=== PATIENT | female | born 1995 | race Caucasian/White ===

== ENCOUNTER 2017-06-01 13:41 | Emergency (ER) | payer BC ==
[~2017-06-01] VITALS: Ht 182.9 cm; Wt 104.5 kg
[~2017-06-01 13:41] MED LIST: NO HOME MEDICATIONS; NOVOLOG 100U100 U/M1 SC; TYLENOL 325MG325 MG PO
[2017-06-01 14:04] VITALS: TEMP 98
[2017-06-01 14:09] LABS: BASO # 0.1 (0.0-0.2); BASO % 0.7 % (0.0-2.0); EOS # 0.1 (0.0-0.7); EOS % 1.7 % (0-4.0); GRAN # 4.4 (1.4-6.5); GRAN % 60.6 % (42.2-75.2); HEMATOCRIT 39.6 % (35.0-45.0); HEMOGLOBIN 13.4 g/dl (12.0-15.0); LYMPH # 2.2 (1.2-3.4); LYMPH % 29.9 % (20.0-51.0); MEAN CELL VOLUME 88 fl (80.0-95.0); MEAN CORPUSCULAR HEMOGLOBIN 30 pg (26.0-32.0); MEAN CORPUSCULAR HGB CONC 34 g/dl (33.0-37.0); MEAN PLATELET VOLUME 10.4 fl (7.4-10.4); MONO # 0.5 (0.1-0.6); MONO % 6.8 % (1.7-9.3); PLATELET COUNT 284 K/mm3 (130-400); RED BLOOD COUNT 4.52 M/mm3 (4.10-5.30); REDCELL DISTRIBUTION WIDTH-CV 12.2 % (11.5-14.5)
[2017-06-01 14:18] LABS: ALANINE AMINOTRANSFERASE 23 U/L (9-52); ALBUMIN 4.9 gm/dL (3.5-5.0); ALKALINE PHOSPHATASE 51 U/L (50-136); ANION GAP 15 mmol/L (7-16); AST,SGOT 25 U/L (15-37); BILIRUBIN,TOTAL 0.4 mg/dL (0.0-1.0); BLOOD UREA NITROGEN 9 mg/dL (7-17); CALCIUM 9.5 mg/dL (8.4-10.2); CARBON DIOXIDE 20 mmol/L (22-30); CHLORIDE 105 mmol/L (98-107); CREATININE, serum 0.65 mg/dL (0.52-1.25); GLUCOSE 59 mg/dL (74-106); POTASSIUM 3.6 mmol/L (3.4-5.0); SODIUM 139 mmol/L (137-145); TOTAL PROTEIN 7.6 gm/dL (6.4-8.2)
[2017-06-01 14:21] LABS: C-REACTIVE PROTEIN < 0.5 mg/dL (0.0-0.9)
[2017-06-01 14:32] LABS: PROLACTIN 111.4 ng/mL (3.0-18.6)
[2017-06-01 16:12] VITALS: BP 115/80; PULSE 83
== END 2017-06-01 16:06 | disposition home or self-care (01) ==
LOC: COL.ER 13:41
PROVIDERS: Emergency Medicine
DX: E10.649 Type 1 diabetes mellitus with hypoglycemia without coma (principal); R56.9 Unspecified convulsions
CPT/HCPCS: J2405; J7030

== ENCOUNTER 2018-12-16 14:23 | Inpatient (IN) | payer BC ==
[2018-12-16] VITALS (181 sets, daily range): BP systolic 115–121; BP diastolic 69; PULSE 74–89; TEMP 98.6; O2SAT 97–100
[~2018-12-16] VITALS: Ht 182.9 cm; Wt 102.3 kg
[2018-12-16 15:02] LABS: COLLECTION METHOD CLEAN CATCH
[2018-12-16 15:05] LABS: BASO % 0.2 % (0.0-2.0); EOS % 0.1 % (0-4.0); GRAN # 8.2 (1.4-6.5); GRAN % 89.5 % (42.2-75.2); HEMATOCRIT 45.3 % (37.0-47.0); HEMOGLOBIN 15.3 g/dl (12.5-16.0); LYMPH # 0.6 (1.2-3.4); LYMPH % 6.4 % (20.0-51.0); MEAN CELL VOLUME 90 fl (80.0-100.0); MEAN CORPUSCULAR HEMOGLOBIN 30 pg (27.0-31.0); MEAN CORPUSCULAR HGB CONC 34 g/dl (33.0-37.0); MEAN PLATELET VOLUME 10.5 fl (7.4-10.4); MONO # 0.3 (0.1-0.6); MONO % 3.3 % (1.7-9.3); PLATELET COUNT 227 K/mm3 (130-400); RED BLOOD COUNT 5.04 M/mm3 (4.10-5.30); REDCELL DISTRIBUTION WIDTH-CV 12.6 % (11.5-14.5)
[2018-12-16 15:07] LABS: PH 5 (5-8); URINE APPEARANCE Hazy; URINE BACTERIA None Seen /hpf; URINE BILIRUBIN Negative (NEGATIVE); URINE BLOOD Negative (NEGATIVE); URINE COLOR Yellow; URINE GLUCOSE 3+ (NEGATIVE); URINE KETONE 2+ (NEGATIVE); URINE LEUKOCYTE ESTERASE Negative (NEGATIVE); URINE NITRATE Negative (NEGATIVE); URINE PROTEIN(semi-quant) Negative (NEGATIVE); URINE RBC 0-2 /hpf; URINE UROBILINOGEN Negative (NEGATIVE)
[2018-12-16 15:14] LABS: ALANINE AMINOTRANSFERASE 22 U/L (9-52); ALBUMIN 4.8 gm/dL (3.5-5.0); ALKALINE PHOSPHATASE 86 U/L (50-136); ANION GAP 22 mmol/L (7-16); AST,SGOT 40 U/L (15-37); BILIRUBIN,TOTAL 1.4 mg/dL (0.0-1.0); BLOOD UREA NITROGEN 17 mg/dL (7-17); C-REACTIVE PROTEIN 0.7 mg/dL (0.0-0.9); CALCIUM 9.5 mg/dL (8.4-10.2); CHLORIDE 103 mmol/L (98-107); CREATININE, serum 0.82 (0.52-1.25); GLUCOSE 332 mg/dL (74-106); LIPASE 15 U/L (23-300); POTASSIUM 4.8 mmol/L (3.4-5.0); SODIUM 136 mmol/L (137-145); TOTAL PROTEIN 7.8 gm/dL (6.4-8.2)
[2018-12-16 15:25] LABS: CARBON DIOXIDE 12 mmol/L (22-30)
[2018-12-16 15:26] LABS: ACETONE,SERUM MODERATE
--- NOTE | 2018-12-16 19:12 | NUR ---
Patient brought over from ED on insulin drip at 3u/hr.
--- NOTE | 2018-12-16 19:12 | NUR ---
Patient arrives at this time via ED cart. Patient's mother, Karlie, at the bedside. Patient stands and walks to unit bed. Attached patient to unit monitoring equipment. Assessment complete. Patient lungs are clear in all roman, no signs of SOB or tachypnea. HR and rhythm regular with normal S1 and S2 heard. Bowel sounds active x4. Patient is alert and oriented. No complaints of pain. No apparent skin issues. Pulses are palpable. Oriented patient and mother to unit, room, and call light. Patient requests some water and warm blankets, provided. Patient has no further needs. Will continue to monitor. Call light within reach.
[2018-12-16 19:27] LABS: CREATININE, serum 0.62 (0.52-1.25); POTASSIUM 4.7 mmol/L (3.4-5.0)
--- NOTE | 2018-12-16 19:34 | NUR ---
REPORT GIVEN TO SVETA MAJOR.
[2018-12-16] MEDS ORDERED: MIRENA52 MG IY (20:39)
[2018-12-16 21:30] LABS: CREATININE, serum 0.59 (0.52-1.25); POTASSIUM 4.3 mmol/L (3.4-5.0)
[2018-12-16 23:44] LABS: CALCIUM 7.9 mg/dL (8.4-10.2); CREATININE, serum 0.5 (0.52-1.25); POTASSIUM 3.8 mmol/L (3.4-5.0)
[2018-12-17] VITALS (238 sets, daily range): BP systolic 88–113; BP diastolic 42–72; PULSE 70–93; TEMP 98.2–98.4; O2SAT 96–100
--- NOTE | 2018-12-17 | NUR ---
Patient laying in bed awake at this time. No complaints of pain or SOB. Vitals remain stable. Patient requests more water, provided. No further needs at this time.
--- NOTE | 2018-12-17 03:10 | NUR ---
Patient's personal insulin pump restarted at this time.
[2018-12-17 03:32] LABS: CALCIUM 7.9 mg/dL (8.4-10.2); CREATININE, serum 0.54 (0.52-1.25); POTASSIUM 4.1 mmol/L (3.4-5.0)
--- NOTE | 2018-12-17 04:00 | NUR ---
Patient resting at this time. Awakens to name. No complaints of pain or discomfort, just states that she is tired. Vitals remain stable. Patient has no other needs at this time. Will continue to monitor. Call light within reach.
--- NOTE | 2018-12-17 06:30 | NUR ---
Per Dr. Blake note, patient to follow home regimen of insulin pump once gap is closed. Patient's glucose is 205. Confirmed with patient what her normal dosing would be for a glucose that high. Patient states that she would give a bolus. Patient gives herself a 1.2U bolus along with continuous basal rate. Will continue to monitor via accuchecks.
--- NOTE | 2018-12-17 07:15 | NUR ---
Report recieved from Kirti BANGURA. Patient sitting up in bed with mom at bedside. Denies complaints, denies needs. Lab here for scheduled draw, BS 185. Patient has insulin pump on per home dosing. Will continue to follow blood sugars.
--- NOTE | 2018-12-17 07:20 | NUR ---
Bedside report given to SVETA Marquez
[2018-12-17 07:44] LABS: CALCIUM 7.9 mg/dL (8.4-10.2); CREATININE, serum 0.56 (0.52-1.25); POTASSIUM 4.2 mmol/L (3.4-5.0)
--- NOTE | 2018-12-17 09:38 | NUR ---
SW met with the patient to discuss a discharge plan. The pt lives alone in [place]. The pt does not use DME and reports independence with ADLs. The pt's PCP is Dr. Quinn and pt receives medications from [facility] with no difficulties. The pt does not have advanced directives in the EMR and was not interested in a DPOA-HC form. The pt plans to return home upon discharge. There are no additional needs at this time.
--- NOTE | 2018-12-17 12:00 | NUR ---
IV's removed and wrapped with coban. Discharge instructions given to patient and mother, both voice understanding. Education given. Discharge ambulatory to home with mom driving.
== END 2018-12-17 12:00 | disposition home or self-care (01) | DRG 639 ==
LOC: COL.ER 14:23 → ICU 15:59
PROVIDERS: Emergency Medicine; Nurse Practitioner Family; ADMIT Hospitalist
DX: E10.10 Type 1 diabetes mellitus with ketoacidosis without coma (principal); A08.4 Viral intestinal infection, unspecified; Z79.4 Long term (current) use of insulin; Z96.41 Presence of insulin pump (external) (internal); Z90.49 Acquired absence of other specified parts of digestive tract
CPT/HCPCS: 99222-AI; 99239; J1815; J2405; J3480; J7030